=== PATIENT | female | born 1990 | race Caucasian/White ===

== ENCOUNTER → 2018-04-19 | Outpatient (CLI) | payer OTHER ==
[~2018-04-19] MED LIST: ALDOMET 250MG250 MG PO; CEFTIN250 MG PO; CEFTIN250 MG/5 M PO; MOTRIN 600600 MG/TAB PO; PERCOCET 325 MG1 TA2 PO; PRENATAL VITAMI1 TA5 PO; PRENATAL1 TA1 PO; TYLENOL 325MG325 MG PO; TYLENOL 500MG500 MG PO
== END ==
LOC: COL.RAD 07:27
DX: Z30.432 Encounter for removal of intrauterine contraceptive device (principal)

== ENCOUNTER → 2018-04-19 | Outpatient (CLI) | payer OTHER | LOC: COL.RAD 15:25 | DX: Z18.89 Other specified retained foreign body fragments (principal) ==